=== PATIENT | female | born 1985 | race Caucasian/White ===

== ENCOUNTER → 2018-10-18 | Outpatient (CLI) | payer OTHER ==
--- NOTE | 2018-10-18 18:47 | RADIOLOGY REPORT (SQ) ---
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 TECHNIQUE: Dynamic and static grayscale images acquired of the localized site of clinical concern an d recorded on PACS. Additional selected color Doppler and spectral images recorded. SITE OF CONCERN: Posterior neck. LIMITATIONS: None. FINDINGS: No sonographic abnormality. No solid or cystic lesions. IMPRESSION: NO SONOGRAPHIC ABNORMALITY IN THE AREA OF CONCERN. TECHNICAL DOCUMENTATION: JOB ID: [id number] [employer]- All Rights Reserved Reading location - IP/workstation name: [email or web address]
== END ==
LOC: RAD 19:47
PROVIDERS: ATTEND Nurse Practitioner Family
DX: G95.9 Disease of spinal cord, unspecified (principal)
CPT/HCPCS: 76536